=== PATIENT | female | born 1980 | race Caucasian/White ===

== ENCOUNTER 2017-01-18 16:59 | Emergency (ER) | payer OTHER ==
[2017-01-18] MEDS ORDERED: KETOROLAC 60 MG/2 ML VIAL IM STA (17:23)
--- NOTE | 2017-01-18 17:28 | ED ---
General Adult HPI - General Chief complaint: Back Pain/Injury Stated complaint: lt sided flank pain Time Seen by Provider: 01/18/17 17:10 Source: patient, RN notes reviewed Mode of arrival: ambulatory Limitations: no limitations - History of Present Illness Initial comments: Patient 37-year-old female who presents emergency room today with chief complaint of left sided back pain. She does admit that today she was at home doing some housework. She states that he felt increased pain left side mid back. States is worse with certain movements. She denies any other injury or trauma. Denies any other complaints or associated symptoms. Patient denies any recent fever, chills, shortness of breath, chest pain, abdominal pain, nausea or vomiting, numbness or tingling, dysuria or hematuria, constipation or diarrhea, headaches or visual changes, or any other complaints. - Related Data Previous Rx's Medication Instructions Recorded Cyclobenzaprine [Flexeril] 10 mg PO TID #20 tab 01/18/17 Ibuprofen [Motrin] 600 mg PO Q6HR PRN #40 day 01/18/17 Allergies Allergy/AdvReac Type Severity Reaction Status Date / Time No Known Allergies Allergy Verified 01/18/17 17:13 Review of Systems ROS Statement: Those systems with pertinent positive or pertinent negative responses have been documented in the HPI. ROS Other: All systems not noted in ROS Statement are negative. Past Medical History Past Medical History: GERD/Reflux Additional Past Medical History / Comment(s): back pain. RECENT N/V History of Any Multi-Drug Resistant Organisms: None Reported Past Surgical History: Cholecystectomy Past Anesthesia/Blood Transfusion Reactions: No Reported Reaction Past Psychological History: No Psychological Hx Reported Smoking Status: Never smoker Past Alcohol Use History: None Reported Past Drug Use History: None Reported - Past Family History Mother Family Medical History: No Reported History General Exam - General Exam Comments Initial Comments: General: The patient is awake and alert, in no distress, and does not appear acutely ill. Eye: Pupils are equal, round and reactive to light, extra-ocular movements are intact. No nystagmus. There is normal conjunctiva bilaterally. No signs of icterus. Ears, nose, mouth and throat: There are moist mucous membranes and no oral lesions. Neck: The neck is supple, there is no tenderness or JVD. Cardiovascular: There is a regular rate and rhythm. No murmur, rub or gallop is appreciated. Respiratory: Lungs are clear to auscultation, respirations are non-labored, breath sounds are equal. No wheezes, stridor, rales, or rhonchi. Gastrointestinal: Soft, non-distended, non-tender abdomen without masses or organomegaly noted. There is no rebound or guarding present. No CVA tenderness. Bowel sounds are unremarkable. Musculoskeletal: Normal appearance of the cervical, thoracic, lumbar spine. No step-off deformity appreciated. No tenderness in the midline. Patient does have tenderness left lateral lower ribs. Strength 5/5. Sensation intact. Pulses equal bilaterally 2+. Neurological: A&O x 3. CN II-XII intact, There are no obvious motor or sensory deficits. Coordination appears grossly intact. Speech is normal. Skin: Skin is warm and dry and no rashes or lesions are noted. Psychiatric: Cooperative, appropriate mood & affect, normal judgment. Limitations: no limitations Course Vital Signs 01/18/17 17:04 Temperature 98.1 F Pulse Rate 78 Respiratory 20 Rate Blood Pressure 121/64 O2 Sat by Pulse 98 Oximetry Medical Decision Making - Medical Decision Making X-ray reviewed is negative for any acute abnormalities. Results were discussed with the patient. Patient given Toradol shot here in the emergency room is feeling much better. Patient states she has good range of motion no longer experiencing pain with movements. Patient will be discharged home continue on anti-inflammatories also be given a prescription for muscle laxer. Advised the muscle laxer may make her drowsy. Advised to follow-up family doctor return here to the emergency room for any other concerns. Disposition Clinical Impression: Back strain Disposition: HOME SELF-CARE Condition: Good Instructions: Muscle Strain (ED) Additional Instructions: Please use medication as discussed. Please follow-up with family doctor in the next 2 days of symptoms have not improved. Please return to emergency room if the symptoms increase or worsen or for any other concerns. Prescriptions: Cyclobenzaprine [Flexeril] 10 mg PO TID #20 tab Ibuprofen [Motrin] 600 mg PO Q6HR PRN #40 day PRN Reason: Pain Referrals: Kalani Colmenares MD [Primary Care Provider] - 1-2 days Time of Disposition: 18:46
--- NOTE | 2017-01-18 18:06 | XR ---
EXAMINATION TYPE: XR chest 2V DATE OF EXAM: 01/18/2017 COMPARISON: Chest x-ray December 28, 2010 HISTORY: Posterior left chest and back pain. TECHNIQUE: Frontal and lateral views of the chest are obtained. FINDINGS: Some increased rotation is seen on current study. There is no focal air space opacity, ple ural effusion, or pneumothorax seen. The cardiac silhouette size is within normal limits. The osse ous structures are intact. IMPRESSION: No acute cardiopulmonary process. No significant change from prior.
[2017-01-18 18:59] VITALS: BP 107/68; PULSE 55; RESP 16; TEMP 97.6
== END 2017-01-18 19:11 | disposition home or self-care (01) ==
LOC: EC 16:59
DX: S29.012A Strain of muscle and tendon of back wall of thorax, initial encounter (principal); X58.XXXA Exposure to other specified factors, initial encounter
CPT/HCPCS: 71020; 99284; 96372; J1885

== ENCOUNTER 2020-07-30 06:54 | Day surgery (SDC) | payer MEDICAID ==
[2020-07-29 08:21] VITALS: BMI 25.8
[~2020-07-30 06:54] MED LIST: LACTATED RINGERS 1,000 ML IV SCH
[2020-07-30 07:18] VITALS: TEMP 97.6
[2020-07-30] MEDS ORDERED: LIDOCAINE 1% (10MG/ML) FOR IV START INTRADERMA ONE (07:26)
[2020-07-30] MEDS ORDERED: PROPOFOL 10 MG/ML 20 ML VIAL IV ONE (07:46)
[2020-07-30] MEDS ORDERED: LIDOCAINE 1% INJ 10MG/ML (20 ML MDV) ONE (07:46)
--- NOTE | 2020-07-30 08:16 | P.PCN ---
Date of Procedure: 07/30/20 Description of Procedure: Brief history: Patient is a pleasant 40-year-old female presenting for outpatient EGD and colonoscopy for evaluation of heartburn and diarrhea. She reports occasional heartburn. She has also had intermittent episodes of diarrhea with associated urgency and incontinence with no nighttime symptoms. She also has left lower quadrant abdominal pain. Procedure performed: Esophagogastroduodenoscopy with biopsy Colonoscopy Estimated blood loss: Minimal. Preoperative diagnosis: Anesthesia: [facility] Procedure: After informed consent was obtained from the patient was brought into the endoscopy unit and IV sedation was administered by anesthesia under continuous monitoring. Initially upper endoscopy was done. The Olympus GF 190 video endoscope was inserted into the mouth and esophagus intubated without any difficulty and was gradually advanced into the stomach and duodenum and carefully examined. The bulb and second part of the duodenum appeared normal, with biopsies taken. The scope was then withdrawn into the stomach adequately insufflated with air and upon careful examination the antrum and body, cardia and fundus appeared normal, except for some mild punctate erythema in the body suggestive of mild gastritis with flexible sigmoidoscopy. The scope was then withdrawn into the esophagus. The GE junction was located at 36 cm to the incisors, and biopsies a small hiatal hernia measuring 1 cm in size was noted. It appeared regular with no erythema erosions or ulcerations. Rest of the esophagus appeared normal. Patient tolerated the procedure well. At this time the patient continued to remain sedation. Initial digital rectal examination was normal, external hemorrhoids noted. Olympus CF 190 video colonoscope was then inserted into the rectum and gradually advanced to the cecum without any difficulty. Careful examination was performed as the scope was gradually being withdrawn. The prep was excellent. The cecum, ascending colon, transverse colon, descending colon, sigmoid colon and rectum appeared normal with biopsies of the right and left colon taken, the terminal ileum was also intubated and appeared normal with biopsies taken. Retroflexion was performed in the rectum and no lesions were noted, low-grade internal hemorrhoids. Patient tolerated the procedure well. Impression: 1. Mild gastritis. Small hiatal hernia. Biopsies of the duodenum, antrum body and GE junction. 2. Normal-appearing colon from rectum to cecum with normal-appearing terminal ileum with random biopsies taken of the right and left colon as well as the terminal ileum. Internal and external hemorrhoids. Recommendations: Findings of this examination were discussed with the patient as well as
[2020-07-30 08:55] VITALS: BP 182/88; PULSE 70; RESP 16
== END 2020-07-30 09:10 | disposition home or self-care (01) ==
LOC: ORWHC2ENDO 06:54
PROVIDERS: ATTEND Internal Medicine
DX: K64.4 Residual hemorrhoidal skin tags (principal); K64.8 Other hemorrhoids; K21.9 Gastro-esophageal reflux disease without esophagitis; K29.50 Unspecified chronic gastritis without bleeding; K44.9 Diaphragmatic hernia without obstruction or gangrene; Z90.49 Acquired absence of other specified parts of digestive tract; Z98.890 Other specified postprocedural states
CPT/HCPCS: 81025; 88305; 45380; 43239; J2001; J2704

== ENCOUNTER → 2020-09-21 | Outpatient (CLI) | payer MEDICAID ==
--- NOTE | 2020-09-22 11:36 | MM ---
Reason for exam: screening (asymptomatic). Last mammogram was performed 7 years and 10 months ago. History: Family history of breast cancer in paternal grandmother at age 40 and breast cancer in paternal cousin at age 25. Physical Findings: A clinical breast exam by your physician is recommended on an annual basis and results should be correlated with mammographic findings. MG 3D Screening Mammo W/Cad Bilateral CC, MLO, and XCCL view(s) were taken. Prior study comparison: November 12, 2012, bilateral digital screening mammo w/CAD. The breast tissue is heterogeneously dense. This may lower the sensitivity of mammography. Finding: There is an intermediate concern, suspicious 11 mm equal density (isodense), circumscribed round mass located 5-6 cm from the nipple in the left breast consistent with possible mass on XCCL. ASSESSMENT: Incomplete: need additional imaging evaluation, BI-RAD 0 RECOMMENDATION: Ultrasound of the left breast. [facility] will attempt to contact patient to return for ultrasound.
== END | disposition home or self-care (01) ==
LOC: RADMAMWWP 10:28
PROVIDERS: ATTEND Internal Medicine
DX: Z12.31 Encounter for screening mammogram for malignant neoplasm of breast (principal); Z78.0 Asymptomatic menopausal state
CPT/HCPCS: 77063; 77067

== ENCOUNTER → 2020-09-29 | Outpatient (CLI) | payer MEDICAID ==
--- NOTE | 2020-09-29 13:38 | USB ---
Reason for exam: additional evaluation requested from abnormal screening. History: Family history of breast cancer in paternal grandmother at age 40 and breast cancer in paternal cousin at age 25. Physical Findings: Nurse did not find any significant physical abnormalities on exam. US Breast Workup Limited LT Left limited breast ultrasound including focal area of concern, retroareolar and axilla demonstrates a 0.5 x 0.9 x 0.4cm cystic, benign lesion at 1 o'clock, may correspond to the mammographic finding. 6 month follow up recommended. Scanned 12-3 o'clock. These results were verbally communicated with the patient and result sheet given to the patient on 09/29/20. ASSESSMENT: Probably benign, BI-RAD 3 RECOMMENDATION: Follow-up diagnostic mammogram of the left breast in 6 months.
== END | disposition home or self-care (01) ==
LOC: RADUSWWP 12:54
PROVIDERS: ATTEND Internal Medicine
DX: R92.8 Other abnormal and inconclusive findings on diagnostic imaging of breast (principal)

== ENCOUNTER → 2021-08-10 | Outpatient (CLI) | payer MEDICAID ==
--- NOTE | 2021-08-10 09:16 | XR ---
EXAMINATION TYPE: XR chest 2V DATE OF EXAM: 08/10/2021 COMPARISON: Chest x-ray 01/18/2017 HISTORY: Left chest pain, bradycardia and abnormal EKG TECHNIQUE: Frontal and lateral views of the chest are obtained. FINDINGS: There is no focal air space opacity, pleural effusion, or pneumothorax seen. The cardiac silhouette size is within normal limits. Surgical clips present in the right upper quadrant. The oss eous structures are intact. IMPRESSION: No acute cardiopulmonary process.
--- NOTE | 2021-08-10 11:02 | P.STRESS ---
- Stress Test Note Stress Test Results/Findings: Exam Performed: Exam Date: Reason for Exam: Height: Weight: Protocol: Stage: Duration of Exercise: Resting Heart Rate: Resting Blood Pressure: Maximum Achieved Heart Rate: Maximum Achieved Blood Pressure: 85% PMHR: 100% PMHR: METS: Technologist Comment: Stress Test Results/Findings: This is a 41-year-old female with history of hypercholesterolemia, being evaluated for symptoms of chest pain, shortness of breath and palpitations. Stress data: Baseline EKG showed sinus rhythm with a normal MA interval and QRS duration. Patient walked on the Phil protocol for 10-1/2 minutes achieving a maximum rate of 155 with a blood pressure 162/50. EKGs taken during and after exercise did not reveal any significant changes from the baseline. Echo data: This an echo images show normal wall motion and thickening. Exercise echo images showed augmentation of wall motion and thickening in all the segments. Final impression: #1. Negative stress test. Negative stress echo.
--- NOTE | 2021-08-12 12:06 | EST ---
Stress Test Results/Findings: Exam Performed: Exam Date: Reason for Exam: Height: Weight: Protocol: Stage: Duration of Exercise: Resting Heart Rate: Resting Blood Pressure: Maximum Achieved Heart Rate: Maximum Achieved Blood Pressure: 85% PMHR: 100% PMHR: METS: Technologist Comment: Stress Test Results/Findings: This is a 41-year-old female with history of hypercholesterolemia, being evaluated for symptoms of chest pain, shortness of breath and palpitations. Stress data: Baseline EKG showed sinus rhythm with a normal VT interval and QRS duration. Patient walked on the Phil protocol for 10-1/2 minutes achieving a maximum rate of 155 with a blood pressure 162/50. EKGs taken during and after exercise did not reveal any significant changes from the baseline. Echo data: This an echo images show normal wall motion and thickening. Exercise echo images showed augmentation of wall motion and thickening in all the segments. Final impression: #1. Negative stress test. Negative stress echo. HORACE
== END | disposition home or self-care (01) ==
LOC: RADNMMAIN 08:42
PROVIDERS: ATTEND Internal Medicine
DX: R07.9 Chest pain, unspecified (principal); R94.31 Abnormal electrocardiogram [ECG] [EKG]; R00.1 Bradycardia, unspecified
CPT/HCPCS: 71046; 93351

== ENCOUNTER → 2021-12-29 | Outpatient (CLI) | payer MEDICAID ==
--- NOTE | 2021-12-29 15:32 | US ---
EXAMINATION TYPE: US pelvic complete DATE OF EXAM: 12/29/2021 COMPARISON: NONE CLINICAL HISTORY: R10.2 pelvic pain. Left sided pelvic pain x 3 weeks. . TECHNIQUE: . Transabdominal sonographic images of the pelvis were acquired. Pt refused transvaginal exam. Date of LMP: 12/25/21 EXAM MEASUREMENTS: Uterus: 8.8 x 7.7 x 4.8 cm Endometrial Stripe: 0.53 cm Right Ovary: Not vis Left Ovary: 3.6 x 3.1 x 1.6 cm 1. Uterus: Anteverted Heterogeneous appearing. Probable fibroid seen on the right side of uterus m easuring 1.8 x 1.2 x 1.7 cm. Echogenic foci seen measuring 0.4 x 0.4 x 0.3 cm. 2. Endometrium: Not well visualized. 3. Right Ovary: Obscured by overlying bowel gas 4. Left Ovary: wnl 5. Bilateral Adnexa: wnl 6. Posterior cul-de-sac: wnl IMPRESSION: 1. Leiomyomatous changes of the uterus.
== END | disposition home or self-care (01) ==
LOC: RADUSWWP 14:58
PROVIDERS: ATTEND Internal Medicine
DX: R10.2 Pelvic and perineal pain (principal)
CPT/HCPCS: 76856

== ENCOUNTER → 2022-05-03 | Outpatient (CLI) | payer MEDICAID ==
--- NOTE | 2022-05-04 09:30 | MM ---
Reason for Exam: Screening (asymptomatic). Last mammogram was performed 1 year(s) and 7 month(s) ago. Patient History: Menarche at age 10. First Full-Term at age 17. Paternal grandmother had breast cancer, age 40. Paternal cousin had breast cancer, age 25. Risk Values: Anika 5 year model risk: 0.6%. NCI Lifetime model risk: 7.1%. Prior Study Comparison: 11/12/2012 Bilateral Screening Mammogram, [facility]. 09/21/2020 Bilateral Screening Mammogram, [facility]. Tissue Density: The breast tissue is heterogeneously dense. This may lower the sensitivity of mammography. Findings: Analyzed By CAD. There is no suspicious group of microcalcifications or new suspicious mass in either breast. Overall Assessment: Negative, BI-RAD 1 Management: Screening Mammogram of both breasts in 1 year. A clinical breast exam by your physician is recommended on an annual basis and results should be correlated with mammographic findings. [facility] will attempt to contact patient to return for supplemental views and ultrasound if indicated. Electronically signed and approved by: Rosendo Scherer DO
== END | disposition home or self-care (01) ==
LOC: RADMAMWWP 16:19
PROVIDERS: ATTEND Internal Medicine
DX: Z12.31 Encounter for screening mammogram for malignant neoplasm of breast (principal); Z80.3 Family history of malignant neoplasm of breast
CPT/HCPCS: 77063; 77067

== ENCOUNTER → 2023-07-05 | Outpatient (CLI) | payer BC ==
--- NOTE | 2023-07-05 12:18 | US ---
EXAMINATION TYPE: US kidneys/renal and bladder DATE OF EXAM: 07/05/2023 COMPARISON: CT 2019, US 2014 CLINICAL INDICATION: Female, 43 years old with history of R31.9 HEMATURIA, UNSPECIFIED; Hx stone. Hem aturia. EXAM MEASUREMENTS: Right Kidney: 12.0 x 6.3 x 4.3 cm Left Kidney: 10.6 x 5.1 x 5.8 cm Right Kidney: No hydronephrosis or masses seen Left Kidney: Hyperechoic focus seen lower pole: 0.3 x 0.3 x 0.4 cm. Bladder: Appears wnl Bilateral Jets seen: Yes IMPRESSION: 1. No evidence for obstructive uropathy. 2. Left renal calculus.
== END | disposition home or self-care (01) ==
LOC: RADUSWWP 10:11
PROVIDERS: ATTEND Internal Medicine
DX: N20.0 Calculus of kidney (principal); R31.9 Hematuria, unspecified
CPT/HCPCS: 76770

== ENCOUNTER → 2024-04-26 | Outpatient (CLI) | payer BC | END | disposition home or self-care (01) | LOC: RADMAMWWP 15:53 | PROVIDERS: ATTEND Internal Medicine | DX: N93.9 Abnormal uterine and vaginal bleeding, unspecified (principal) | CPT/HCPCS: 77063; 77067; 88305 ==